=== PATIENT | male | born 1990 | race Caucasian/White ===

== ENCOUNTER 2017-06-21 23:09 | Emergency (ER) | payer BC ==
[2017-06-21] MEDS ORDERED: Sodium Chloride 0.9% 1,000 ML IV ONE (23:11)
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
[2017-06-21] MEDS ORDERED: Diphtheria,Pertussis(Acell),Tetanus Vaccine 0.5 ML Syringe IM ONE (23:27)
[2017-06-21] MEDS ORDERED: Iopamidol 755 MG/ML 500 ML Multipack Bottle IVPUSH STA (23:56)
[2017-06-21 23:59] LABS: CHLORIDE,CL 106 mmol/L (98-110); SODIUM,NA 140 mmol/L (136-146)
[2017-06-22] MEDS ORDERED: Ondansetron 4 MG/2 ML SDV ONE (00:05)
[2017-06-22] MEDS: Ondansetron 4 MG/2 ML SDV IVPUSH ONE ×2 (00:10→01:29)
[2017-06-22] MEDS ORDERED: Sodium Chloride 0.9% 1,000 ML IV ONE (01:27)
[2017-06-22] MEDS ORDERED: Acetaminophen/HYDROcodone 325-5 MG Tab ONE (02:18)
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
== END 2017-06-22 00:48 | disposition other institution (70) ==
LOC: MW.ED 23:09
DX: S06.5X9A Traumatic subdural hemorrhage with loss of consciousness of unspecified duration, initial encounter (principal); S00.01XA Abrasion of scalp, initial encounter; S00.81XA Abrasion of other part of head, initial encounter; S30.810A Abrasion of lower back and pelvis, initial encounter; F10.129 Alcohol abuse with intoxication, unspecified; Z23 Encounter for immunization; Y90.7 Blood alcohol level of 200-239 mg/100 ml; V87.8XXA Person injured in other specified noncollision transport accidents involving motor vehicle (traffic), initial encounter; Y92.410 Unspecified street and highway as the place of occurrence of the external cause
CPT/HCPCS: 36415; 51702; 70450; 71010; 71260; 72125; 72170; 74177; 80053; 81001; 82550; 82553; 84484; 85025; 85610; 86850; 86900; 86901; 90471; 90715; 96361; 96374; 99291; G0480; J2405; J7040; Q9967

== ENCOUNTER 2017-06-23 12:51 | Emergency (ER) | payer BC ==
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
== END 2017-06-23 14:55 | disposition home or self-care (01) ==
LOC: MW.ED 12:51
DX: R51 Headache (principal)
CPT/HCPCS: 70450; 70450-26; 99283; 99284-25